=== PATIENT | male | born 1975 | race African-American/Black ===

== ENCOUNTER 2023-09-14 03:08 | Emergency (ER) | payer MEDICAID ==
[~2023-09-14] VITALS: Ht 167.6 cm; Wt 100.0 kg
[2023-09-14 03:26] VITALS: TEMP 98.3
[2023-09-14] MEDS ORDERED: METH-659 PO (07:06)
[2023-09-14] MEDS ORDERED: IBUP-1554 PO (07:06)
[2023-09-14 07:23] VITALS: BP 126/90; PULSE 90; RESP 14
== END 2023-09-14 07:25 | disposition home or self-care (01) ==
LOC: EMS 03:10
DX: M62.838 Other muscle spasm (principal); M25.511 Pain in right shoulder
CPT/HCPCS: 99283